=== PATIENT | female | born 1965 | race Caucasian/White ===

== ENCOUNTER 2016-11-01 18:02 | Emergency (ER) | payer OTHER, SELFPAY ==
--- NOTE | 2016-11-01 18:43 | PICIS ---
[facility] EMERGENCY RECORD TRIAGE (TueNov 01, 2016 18:09 LGIB) TRIAGE NOTES: LEFT RIB PAIN FOR OVER A WEEK BUT THE LAST 2 DAYS HAVE BEEN WORSE. DENIES INJURY. (TueNov 01, 2016 18:09 LGIB) PATIENT: NAME: Cintia Samson, AGE: 51, GENDER: female, : Sat 1965, TIME OF GREET: TueNov 01, 2016 18:03, PREFERRED LANGUAGE: Tamazight, ETHNICITY: Not or , ECODE BILLING MAP: [facility], SSN: [id number], Zip Code: [address], KG WEIGHT: 58.97, PHONE: , , , PERSON ID: [id number], PAYMENT: [employer] Self Pay, PCP: Arian ESCOBEDO RUSSEL. (TueNov 01, 2016 18:09 LGIB) COMPLAINT: LEFT RIB PAIN. (TueNov 01, 2016 18:09 LGIB) ADMISSION: URGENCY: 4 Non Urgent, ADMISSION SOURCE: Home, TRANSPORT: CAR, BED: ER -02. (TueNov 01, 2016 18:09 LGIB) SIRS SCORING: Heart Rate 55-109 (0), Temp range 96.8-101.1 (0), respiratory rate 12-24 (0), Mental Status altered: no (0), Total SIRS Score 0. (18:11 LGIB) PROVIDERS: TRIAGE NURSE: Sarah García RN. (TueNov 01, 2016 18:09 LGIB) KNOWN ALLERGIES Penicillins CURRENT MEDICATIONS No recorded medications VITAL SIGNS (18:09 LSMI) VITAL SIGNS: BP: 144/87, Pulse: 87, Resp: 20, Temp: 98.1 (Oral), O2 sat: 99 on Room Air, Time: 11/01/2016 18:09. NURSING ASSESSMENT: RESPIRATORY /CHEST (18:13 LGIB) CONSTITUTIONAL: Complex assessment performed, Patient arrives ambulatory, Gait steady, History obtained from patient, Patient appears comfortable, Patient cooperative, Patient alert, Oriented to person, place and time, Skin warm, Skin dry, Skin normal in color, Mucous membranes pink, Mucous membranes moist, Patient is well-groomed, Patient complains of left rib pain. PAIN: tender pain, to the left chest, tender to palpation, Nothing has been tried to alleviate the pain. RESPIRATORY/CHEST: Breath sounds clear, Respiratory assessment findings include respiratory effort easy, Respirations regular, Conversing normally, Neck and chest exam findings include trachea midline, Chest expansion equal, Chest movement symmetrical, no signs of distress, no retractions noted, no cyanosis, no associated cough noted, no associated fever. ENT: Ear assessment findings include ear normal to inspection, Nasal assessment findings include nose normal to inspection, Mouth and throat assessment findings include mouth inspection normal. NURSING PROCEDURE: DISCHARGE NOTE (18:31 LGIB) &a-1R&a+25V*p+0X*p8283L*c202B*c15G*c2P*p-0X&a-25V&a+1R Name: Cintia Samson : 1965 F51 MedRec: [id number] AcctNum: [id number] Prepared: [facility] Nov 04, 2016 10:53 by Interface Page 1 of 5 pMD [facility] EMERGENCY RECORD DISCHARGE: Patient discharged to home, ambulating without assistance, driving self, unaccompanied, Summary of Care printed/ provided, Patient requested and was provided an electronic copy of Discharge Instructions, Discharge instructions given to patient, Simple or moderate discharge teaching performed, Prescriptions given and instructions on side effects given, Above person(s) verbalized understanding of discharge instructions and follow-up care, Patient treated and evaluated by physician. BELONGINGS: Belongings and valuables with patient at time of discharge include:, Belongings remain with patient, Valuables remain with patient. HPI GENERAL (TueNov 02, 2016 05:53 MBRI) CHIEF COMPLAINT: Patient presents for evaluation of 51 yo female presents for evaluation of pain to the left lower ribs. She states that this is moderate pain, aching with sharp episodes, worsened by certain movements, relieved with rest, and ongoing for the past week. This started when she bent over and reached into a trash can. She said that while bending she rotated slightly and felt a pop in the area of her rib cage on the left side. This was when the pain started but that it wasn't bad for the first couple of days but has worsened since that time. No other associated injury and no other complaints at this time. HISTORIAN: History provided by patient. MECHANISM OF INJURY: Mechanism of injury: Body motion. LOCATION: Symptoms are localized. QUALITY: Pain is dull in nature, described as aching. SEVERITY: Maximum severity of symptoms moderate, Currently symptoms are moderate. TIME COURSE: Gradual onset of symptoms, Symptoms are worsening, are intermittent. ASSOCIATED WITH: No associated symptoms, Denies any other complaints. RELIEVED BY: Patient's condition relieved by nothing. ROS (TueNov 02, 2016 05:57 MBRI) CONSTITUTIONAL: Negative constitutional review of systems, Historian denies chills, denies fever. ENT: Negative ears, nose, throat review of systems. CARDIOVASCULAR: Negative cardiovascular review of systems, no radiation, Historian denies diaphoresis, denies dyspnea on exertion, denies edema, denies orthopnea, denies paroxysmal nocturnal dyspnea, denies syncope, denies palpitations. RESPIRATORY: Historian denies cough, denies shortness of breath, denies sputum, denies stridor, denies wheezing. GI: Historian denies abdominal pain, denies appetite changes, denies diarrhea, denies nausea, denies vomiting. GENITOURINARY FEMALE: Negative genitourinary review of systems, Historian denies dysuria, denies frequency, denies hematuria. &a-1R&a+25V*p+0X*p6686V*c202B*c15G*c2P*p-0X&a-25V&a+1R Name: Cintia Samson : 1965 F51 MedRec: [id number] AcctNum: [id number] Prepared: Gayle Nov 04, 2016 10:53 by Interface Page 2 of 5 D [facility] EMERGENCY RECORD MUSCULOSKELETAL: Historian denies back pain, denies deformity, denies fall, reports injury, denies joint redness, denies joint stiffness, denies joint swelling, denies neck pain, denies spasms. SKIN: Negative skin review of systems, Historian denies cellulitis, denies rash. NEUROLOGIC: Negative neurologic review of systems. HEMO/LYMPHATIC: Normal hematologic/lymphatic system review, Historian denies abnormal blood clotting, denies easy bruising. PAST MEDICAL HISTORY (18:11 LGIB) MEDICAL HISTORY: No past medical history. FEMALE SURGICAL HISTORY: Breast augmentation, Surgical history of hysterectomy. SOCIAL HISTORY: Patient denies alcohol use, Patient currently uses tobacco, smokes cigarettes, daily, Patient has smoked for 30 years, Patient smokes 1/2 packs per day (trying to quit). PHYSICAL EXAM (TueNov 02, 2016 05:58 MBRI) CONSTITUTIONAL: Vital signs reviewed, Patient afebrile, Pulse normal, Blood pressure normal, Respiratory rate normal, Patient appears non toxic, Patient appears pain free, Patient alert and oriented to person, place and time. HEAD: Head exam included findings of head atraumatic, normocephalic. EYES: Eye exam normal. NECK: Neck exam normal, Neck exam included findings of normal range of motion. RESPIRATORY CHEST: Respiratory exam included findings of no respiratory distress, Breath sounds clear, No wheezing, No rales, No rhonchi, Breath sounds not diminished, Chest exam included findings of chest movement symmetrical, Tenderness, moderate, to the left anterior chest, to the left lateral chest, Palpation of chest reproduces symptoms, Pain is noted laterally and ant over the 8/9 ribs on the left. CARDIOVASCULAR: Cardiovascular exam included findings of heart rate regular rate and rhythm, Heart sounds normal, normal S1, normal S2, no murmurs, Carotids normal, Pedal pulses normal. ABDOMEN FEMALE: Abdominal exam included findings of abdomen nontender, Spleen normal, no distension, no pulsatile masses, no peritoneal signs, no rigidity, no guarding, no rebound. BACK: Back exam normal, Back exam included findings of normal inspection, no tenderness, no costovertebral angle tenderness. UPPER EXTREMITY: Upper extremity exam normal, Upper extremity exam included findings of inspection normal, Range of motion normal, Motor strength normal, Sensation intact, Radial pulse normal, no cyanosis, no clubbing, no edema. LOWER EXTREMITY: Lower extremity exam included findings of inspection normal, Range of motion normal, Motor strength normal, &a-1R&a+25V*p+0X*q8452V*c202B*c15G*c2P*p-0X&a-25V&a+1R Name: Cintia Samson : 1965 F51 MedRec: [id number] AcctNum: [id number] Prepared: [facility] Nov 04, 2016 10:53 by Interface Page 3 of 5 pMD [facility] EMERGENCY RECORD Sensation intact, Pedal pulse normal, no cyanosis, no clubbing, no edema. NEURO: Neuro exam findings include patient oriented to person, place and time, Speech normal, Gait normal. SKIN: Skin exam included findings of skin warm, dry, and normal in color. EVENTS TRANSFER: Triage to Emergency Emergency Room -02. (TueNov 01, 2016 18:09 LGIB) Removed from Emergency Emergency Room -02. (18:31 LGIB) O2SAT INTERPRETATION (18:23 MBRI) O2SAT: Oxygen saturation interpretation: Normal. DOCTOR NOTES (18:23 MBRI) TEXT: Pt evaluated at this time and appears stable. No findings to suggest sig illness or issue requiring hospitalization or further intervention at this time. Plan of care discussed with pt and questions answered. Pt was informed of reasons for follow-up and return and they stated understanding. Pt is stable for d/c home at this time. PROBLEM LIST No recorded problems DIAGNOSIS (18:25 MBRI) FINAL: PRIMARY: rib pain. DISPOSITION PATIENT: Disposition Type: Discharge, Disposition: *Discharge Home, Condition: Good. (18:25 MBRI) Patient left the department. (18:31 LGIB) INSTRUCTION (18:27 MBRI) DISCHARGE: RIB FRACTURE. FOLLOWUP: Arian ESCOBEDO, [facility], [place] [address], [phone], Follow up with Primary Care Physician as needed. SPECIAL: Please return for any further issues or concerns, we would be happy to see you. We hope you feel better soon. Follow-up with your primary physician as needed Tylenol or Advil for Pain. PRESCRIPTION (18:26 MBRI) traMADol: TABLET : 50 mg : ORAL : Quantity: 1 Unit: tab(s) Route: ORAL Schedule: every 6 hours PRN Dispense: 20 May substitute. Refills: No Refills . NOTES: No refills. &a-1R&a+25V*p+0X*n9217M*c202B*c15G*c2P*p-0X&a-25V&a+1R Name: Cintia Samson : 1965 F51 MedRec: [id number] AcctNum: [id number] Prepared: TueNov 04, 2016 10:53 by Interface Page 4 of 5 pMD [facility] EMERGENCY RECORD IMAGING (18:36 LGIB) *DISCHARGE INSTRUCTIONS RECEIPT: Image captured from scanner. *SUPPLY CHARGE SHEET: Image captured from scanner. ADMIN (TueNov 04, 2016 10:47 MBRI) DIGITAL SIGNATURE: DO Pena Matthew. Clark: LGIB=TOMASZ García Lauren LSMI=SIRI Leonard Leah MBRI=DO Pena Matthew &a-1R&a+25V*p+0X*s6659G*c202B*c15G*c2P*p-0X&a-25V&a+1R Name: Cintia Samson : 1965 [facility] MedRec: [id number] AcctNum: [id number] Prepared: TueNov 04, 2016 10:53 by Interface Page 5 of 5 pMD [facility] MEDICATION RECONCILIATION You were seen in the Emergency Department on: TueNov 01, 2016 KNOWN ALLERGIES Penicillins Notes from the emergency department Reviewed with patient PRESCRIPTIONS (1) &a-1R&a+25V*p+0X*t8004I*c202B*c15G*c2P*p-0X&a-25V&a+1R Name: Cintia Samson : 1965 F51 MedRec: [id number] AcctNum: [id number] Prepared: TueNov 04, 2016 10:53 by Interface pMD MTDNicole
--- NOTE | 2016-11-01 18:46 | ERRECORD ---
[facility] EMERGENCY RECORD HPI GENERAL (TueNov 02, 2016 05:53 MBRI) CHIEF COMPLAINT: Patient presents for evaluation of 51 yo female presents for evaluation of pain to the left lower ribs. She states that this is moderate pain, aching with sharp episodes, worsened by certain movements, relieved with rest, and ongoing for the past week. This started when she bent over and reached into a trash can. She said that while bending she rotated slightly and felt a pop in the area of her rib cage on the left side. This was when the pain started but that it wasn't bad for the first couple of days but has worsened since that time. No other associated injury and no other complaints at this time. HISTORIAN: History provided by patient. MECHANISM OF INJURY: Mechanism of injury: Body motion. LOCATION: Symptoms are localized. QUALITY: Pain is dull in nature, described as aching. SEVERITY: Maximum severity of symptoms moderate, Currently symptoms are moderate. TIME COURSE: Gradual onset of symptoms, Symptoms are worsening, are intermittent. ASSOCIATED WITH: No associated symptoms, Denies any other complaints. RELIEVED BY: Patient's condition relieved by nothing. ROS (TueNov 02, 2016 05:57 MBRI) CONSTITUTIONAL: Negative constitutional review of systems, Historian denies chills, denies fever. ENT: Negative ears, nose, throat review of systems. CARDIOVASCULAR: Negative cardiovascular review of systems, no radiation, Historian denies diaphoresis, denies dyspnea on exertion, denies edema, denies orthopnea, denies paroxysmal nocturnal dyspnea, denies syncope, denies palpitations. RESPIRATORY: Historian denies cough, denies shortness of breath, denies sputum, denies stridor, denies wheezing. GI: Historian denies abdominal pain, denies appetite changes, denies diarrhea, denies nausea, denies vomiting. GENITOURINARY FEMALE: Negative genitourinary review of systems, Historian denies dysuria, denies frequency, denies hematuria. MUSCULOSKELETAL: Historian denies back pain, denies deformity, denies fall, reports injury, denies joint redness, denies joint stiffness, denies joint swelling, denies neck pain, denies spasms. SKIN: Negative skin review of systems, Historian denies cellulitis, denies rash. NEUROLOGIC: Negative neurologic review of systems. HEMO/LYMPHATIC: Normal hematologic/lymphatic system review, Historian denies abnormal blood clotting, denies easy bruising. PAST MEDICAL HISTORY (18:11 LGIB) MEDICAL HISTORY: No past medical history. &a-1R&a+25V*p+0X*u7705B*c202B*c15G*c2P*p-0X&a-25V&a+1R Name: Cintia Samson : 1965 F51 MedRec: [id number] AcctNum: [id number] Prepared: [facility] Nov 04, 2016 10:53 by Interface Page 1 of 3 pMD [facility] EMERGENCY RECORD FEMALE SURGICAL HISTORY: Breast augmentation, Surgical history of hysterectomy. SOCIAL HISTORY: Patient denies alcohol use, Patient currently uses tobacco, smokes cigarettes, daily, Patient has smoked for 30 years, Patient smokes 1/2 packs per day (trying to quit). KNOWN ALLERGIES Penicillins CURRENT MEDICATIONS No recorded medications VITAL SIGNS (18:09 LSMI) VITAL SIGNS: BP: 144/87, Pulse: 87, Resp: 20, Temp: 98.1 (Oral), O2 sat: 99 on Room Air, Time: 11/01/2016 18:09. PHYSICAL EXAM (TueNov 02, 2016 05:58 MBRI) CONSTITUTIONAL: Vital signs reviewed, Patient afebrile, Pulse normal, Blood pressure normal, Respiratory rate normal, Patient appears non toxic, Patient appears pain free, Patient alert and oriented to person, place and time. HEAD: Head exam included findings of head atraumatic, normocephalic. EYES: Eye exam normal. NECK: Neck exam normal, Neck exam included findings of normal range of motion. RESPIRATORY CHEST: Respiratory exam included findings of no respiratory distress, Breath sounds clear, No wheezing, No rales, No rhonchi, Breath sounds not diminished, Chest exam included findings of chest movement symmetrical, Tenderness, moderate, to the left anterior chest, to the left lateral chest, Palpation of chest reproduces symptoms, Pain is noted laterally and ant over the 8/9 ribs on the left. CARDIOVASCULAR: Cardiovascular exam included findings of heart rate regular rate and rhythm, Heart sounds normal, normal S1, normal S2, no murmurs, Carotids normal, Pedal pulses normal. ABDOMEN FEMALE: Abdominal exam included findings of abdomen nontender, Spleen normal, no distension, no pulsatile masses, no peritoneal signs, no rigidity, no guarding, no rebound. BACK: Back exam normal, Back exam included findings of normal inspection, no tenderness, no costovertebral angle tenderness. UPPER EXTREMITY: Upper extremity exam normal, Upper extremity exam included findings of inspection normal, Range of motion normal, Motor strength normal, Sensation intact, Radial pulse normal, no cyanosis, no clubbing, no edema. LOWER EXTREMITY: Lower extremity exam included findings of inspection normal, Range of motion normal, Motor strength normal, Sensation intact, Pedal pulse normal, no cyanosis, no clubbing, no edema. &a-1R&a+25V*p+0X*r7145Y*c202B*c15G*c2P*p-0X&a-25V&a+1R Name: Cintia Samson : 1965 F51 MedRec: [id number] AcctNum: [id number] Prepared: [facility] Nov 04, 2016 10:53 by Interface Page 2 of 3 pMD [facility] EMERGENCY RECORD NEURO: Neuro exam findings include patient oriented to person, place and time, Speech normal, Gait normal. SKIN: Skin exam included findings of skin warm, dry, and normal in color. DOCTOR NOTES (18:23 MBRI) TEXT: Pt evaluated at this time and appears stable. No findings to suggest sig illness or issue requiring hospitalization or further intervention at this time. Plan of care discussed with pt and questions answered. Pt was informed of reasons for follow-up and return and they stated understanding. Pt is stable for d/c home at this time. PROBLEM LIST No recorded problems DIAGNOSIS (18:25 MBRI) FINAL: PRIMARY: rib pain. PRESCRIPTION (18:26 MBRI) traMADol: TABLET : 50 mg : ORAL : Quantity: 1 Unit: tab(s) Route: ORAL Schedule: every 6 hours PRN Dispense: 20 May substitute. Refills: No Refills . NOTES: No refills. DISPOSITION PATIENT: Disposition Type: Discharge, Disposition: *Discharge Home, Condition: Good. (18:25 MBRI) Patient left the department. (18:31 LGIB) Clark: LGIB=TOMASZ García, Sarah LSMI=SIRI Leonard Leah MBRI=DO Pena Matthew &a-1R&a+25V*p+0X*f5997F*c202B*c15G*c2P*p-0X&a-25V&a+1R Name: Cintia Samson : 1965 F51 MedRec: [id number] AcctNum: [id number] Prepared: Gayle Nov 04, 2016 10:53 by Interface Page 3 of 3 pMD MTDD
== END 2016-11-01 18:30 | disposition home or self-care (01) ==
LOC: BURERS 18:02
DX: R07.81 Pleurodynia (principal); F17.210 Nicotine dependence, cigarettes, uncomplicated
CPT/HCPCS: 99283